=== PATIENT | male | born 1985 | race Caucasian/White ===

== ENCOUNTER 2021-09-13 10:53 | Emergency (ER) | payer SELFPAY ==
[~2021-09-13] VITALS: Ht 185.4 cm; Wt 91.8 kg
--- NOTE | 2021-09-13 11:00 | NUR ---
[id number] AND FEELING ANXIOUS X3 DAYS. DESIES SI/HI. PT STATED HE IS DISTRESSED BECAUSE HIS FIANCE . VITALS ARE ELEVATED, DR LEMONS IS AWARE.
[2021-09-13] MEDS ORDERED: LORAZEPAM 0.5 MG TABLET ONE (11:13)
--- NOTE | 2021-09-13 11:24 | NUR ---
Patient eloped from facility. ER MD notified.
[2021-09-13 11:25] VITALS: BP 138/77
[2021-09-13] MEDS ORDERED: LORAZEPAM 1 MG TABLET PO ONE (11:30)
== END 2021-09-13 11:26 | disposition left against medical advice (07) ==
LOC: ER 11:01
DX: F41.9 Anxiety disorder, unspecified (principal); R45.89 Other symptoms and signs involving emotional state